=== PATIENT | female | born 1955 | race African-American/Black ===

== ENCOUNTER 2025-04-03 10:39 | Inpatient (IN) ==
--- NOTE | 2025-04-03 11:35 | Emergency Department Note ---
Impression & Plan Chest pain, Back pain, Elevated troponin ED Provider Note ED Provider Note NAME: LM PERALES AGE:69 SEX: Female : 1955 ARRIVES VIA: Private vehicle INFORMANT: Patient ED PROVIDER(s): Tara Leary DO CHIEF COMPLAINT: Chest pain, back pain, referred by urgent care HPI: This is a 69-year-old female who presents to the emergency department due to concern for chest pain and back pain which began yesterday. She was referred here after initially presenting to urgent care. Patient states yesterday while at rest she developed a central chest pressure with some radiation through to her back. She denies any other accompanying symptoms. She states she thought it was perhaps GI in origin so she tried drinking water, taking baking soda, and drinking apple cider vinegar. After taking all of that she did vomit once and then felt better. She states she was able to sleep overnight without any pain or discomfort initially felt well this morning. After getting up and moving again she began to have pain in her chest and now more so across her mid back area of her bra strap. She denies any coming shortness of breath, dizziness, nausea or vomiting. She states she felt some slight pain in the left arm as well. No extremity weakness or paresthesias. She denies any prior cardiac issues. No history of recurrent GERD. No recent fevers, chills, or URI symptoms. No recent change in medications or diet. No current pain at this time. PAST MEDICAL HISTORY:See Below PAST SURGICAL HISTORY:See Below FAMILY HISTORY:See Below SOCIAL HISTORY:See Below HOME MEDICATIONS:See Below ALLERGIES:See Below VITALS:See Below PHYSICAL EXAMINATION: GENERAL: alert, well appearing, well nourished, no distress, non-toxic EYE EXAM: normal conjunctiva, PERRL and EOM's grossly intact OROPHARYNX: no exudate, no erythema, lips, buccal mucosa, and tongue normal and mucous membranes are moist NECK: supple, no nuchal rigidity, no adenopathy, non-tender LUNGS: Clear to auscultation. Normal chest wall mechanics, no w/r/r HEART: no murmurs, S1 normal and S2 normal, no reproducible pain with palpation ABDOMEN: abdomen soft, non-tender, normo-active bowel sounds, no masses, no rebound or guarding. SKIN: no rashes, petechiae, orbruising UPPER EXTREMITIES: upper extremities are grossly normal. FROM, nml pulses b/l. LOWER EXTREMITIES: No pitting edema. FROM, nml pulses b/l. NEURO EXAM: Normal sensorium, cranial nerves II-XII grossly intact, normal speech, no facial droop,nogross weakness of arms, no gross weakness of legs. Gross sensation intact. No ataxia. Vital Signs: reviewed and remarkable Differential Diagnosis: acute coronary syndrome, pericarditis, pulmonary embolus, aortic dissection, pneumonia, pneumothorax, musculoskeletal pain, shingles, GERD, GI bleed, as well as others were considered MEDICAL DECISION MAKING: This 69-year-old female who presents to the emergency department after referred here from [facility] due to concern for chest and back pain. Patient afebrile and hemodynamically stable. Labs drawn and sent, IV established, EKG and CXR performed and interpreted at bedside, and patient placed on telemetry. Patient had no pain in wrist, EKG reassuring. Patient's troponin noted to be markedly elevated. Patient updated on all results and need for further outpatient evaluation. Case discussed with on-call [facility] cardiology and then with the [facility] hospitalist team for further evaluation. Heparin drip started on the patient, Nitropaste and aspirin were also added. Consultation(s): 1320: Discussed with Dr. Barton, cardiology. Recommends heparin, nitro, and admission to medicine for echo and possible intervention. 1329: Discussed with Dr. Kelly, [place] hospitalist team, for additional evaluation and mgmt. ER Treatment Provided: See below Diagnostics Interpreted By Me: -ECG: Normal sinus at 69, leftward axis, normal intervals, inverted T wave in lead III only, no other acute ischemic changes -Cardiac Monitoring: An order was placed for continuous cardiac monitoring. The monitor shows a rate of 80 with normal sinus rhythm. -Laboratory studies: As stated above and show below. -Imaging studies: X-ray Chest: A single view study of the chest was reviewed and was negative for cardiomegaly, focal infiltrate, effusion, pulmonary edema, or wide mediastinum. Triage Nursing Note Reviewed Prior/Outside Records Reviewed Critical Care: Critical care of 39 min performed to assess and manage high likelihood of life-threatening ACS, involving labs and imaging performed with assessment to evaluate chest pain diagnosis with frequent reassessment. This time includes bedside time, treatment discussions with patient/family/consultants, documentation time and excludes procedure time. 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 Beliefs That Will Affect Care: Voodoo Voodoo Beliefs: Judaism, no blood products Current Living Situation: Alone current occupational status: retired Other Information That Helps Us Care for You: No Feels Safe at Home: Yes Safety Concerns: Feels Safe At This Time Assistive Devices: Glasses Allergies Allergies Allergy/AdvReac Type Severity Reaction Status Date / Time No Known Allergies Allergy Verified 04/03/25 09:57 Home Meds Home Medications Medication Instructions Recorded Confirmed metoprolol tartrate 25 mg tablet 25 mg PO DAILY 07/18/23 04/03/25 quetiapine 50 mg tablet (Seroquel) 50 mg PO DAILY 07/18/23 04/03/25 Results & Data (ED) Vital Signs Vital Signs - 24 hr 04/03/25 10:41 04/03/25 12:23 04/03/25 12:30 Temperature 36.7 C Temperature Source Temporal Artery Scan Pulse Rate 79 66 65 Pulse Rate from SpO2 Sensor 64 Respiratory Rate 18 16 Respiratory Effort / Characteristics Non-Labored Spontaneous Respiratory Depth Normal Respiratory Pattern Regular Blood Pressure 157/80 H 135/84 Blood Pressure Mean 105 101 Blood Pressure Position Sitting Pulse Oximetry 100 97 Oxygen Delivery Method Room Air Room Air Sepsis Recent Fever Within 48 Hours No Sepsis New/Unexplained Change in Mental Status N/A Sepsis Action Taken by Nursing No Action Required Laboratory Data 04/03/25 11:13 04/03/25 11:13 Lab Results 04/03/25 Range/Units 11:13 WBC 3.43 L (4.8-10.8) K/ul RBC 5.25 (4.20-5.40) M/uL Hgb 14.0 (12.0-16.0) g/dL Hct 43.0 (37.0-47.0) % MCV 81.9 (80.0-100.0) fL MCH 26.7 (25.0-34.0) pg MCHC 32.6 (32.0-36.0) g/dL RDW Std Deviation 39.1 (36.4-46.3) fL RDW Coeff of [place] 13.2 (11.5-14.5) % Plt Count 123 L (130-400) K/uL MPV 12.2 (9.4-12.4) fL Immature Gran % (Auto) 0.3 % Neut % (Auto) 53.9 % Lymph % (Auto) 31.2 % [place] % (Auto) 12.2 % Eos % (Auto) 1.5 % Baso % (Auto) 0.9 % Neut # (Auto) 1.85 (1.40-6.50) K/uL Lymph # (Auto) 1.07 L (1.20-3.40) K/uL [place] # (Auto) 0.42 (0.11-0.59) K/uL Eos # (Auto) 0.05 (0.00-0.50) K/uL Baso # (Auto) 0.03 (0.00-0.20) K/uL Immature Gran # (Auto) 0.01 (0.01-0.20) K/uL PT 11.2 (9.0-12.0) Seconds INR 1.1 (0.9-1.1) APTT 25 (21-31) Seconds PTT Ratio 0.9 D-Dimer 200 (0-500) ug/L FEU Sodium 140 (136-145) mmol/L Potassium 3.7 (3.5-5.1) mmol/L Chloride 105 (98-107) mmol/L Carbon Dioxide 29 (21-32) mmol/L Anion Gap 6 (3-11) BUN 7 (6-23) mg/dl Creatinine 0.74 (0.6-1.2) mg/dl Est Cr Clr Drug Dosing 70.0 ml/min eGFR 86.98 BUN/Creatinine Ratio 9.5 L (10-20) Glucose 87 (70-99(Fasting)) mg/dl Calcium 9.5 (8.6-10.3) mg/dl Magnesium 2.1 (1.7-2.4) mg/dl Total Bilirubin 0.9 (0.2-1.0) mg/dl AST 41 H (13-39) U/L ALT 17 (7-52) U/L Alkaline Phosphatase 76 (34-104) U/L Troponin I High Sens 5156.4 H* (0-14) pg/ml B-Natriuretic Peptide 35 (0-100) pg/ml Total Protein 7.6 (6.0-8.3) gm/dl Albumin 4.1 (3.4-5.0) gm/dl Globulin 3.5 (2.5-4.0) gm/dl Albumin/Globulin Ratio 1.2 (0.9-2) Lipase 24 (11-82) U/L TSH 0.625 (0.300-4.500) uIu/ml Administered Medications Heparin Sodium/Dextrose (Heparin 60553 Unit/500 Ml D5w) 25,000 units in 500 mls @ 15 mls/hr IV .Q24H [facility]; Protocol Stop: 05/03/25 13:44 Last Admin: 04/03/25 13:49 Dose: 750 units/hr, 15 mls/hr Documented By: LESLIE Co-signed By: JOSLYN Discontinued Medications Aspirin (Aspirin 325 Mg Ectab) 325 mg PO NOW STA Stop: 04/03/25 13:30 Last Admin: 04/03/25 13:45 Dose: Not Given Documented By: LESLIE Aspirin (Aspirin 81 Mg Chew) 324 mg PO NOW STA Stop: 04/03/25 13:35 Last Admin: 04/03/25 13:49 Dose: 324 mg Documented By: LESLIE Heparin Sodium (Porcine) (Heparin Sod (Porcine) 1000 Unit/Ml) 1 units IV NOW ONE Stop: 04/03/25 13:36 Last Admin: 04/03/25 13:41 Dose: Not Given Documented By: LESLIE Heparin Sodium (Porcine) (Heparin Sod (Porcine) 1000 Unit/Ml) 4,000 units IV NOW ONE Stop: 04/03/25 13:46 Last Admin: 04/03/25 13:49 Dose: 4,000 units Documented By: LESLIE Co-signed By: JOSLYN Heparin Sodium/Dextrose (Heparin Iv Adult Wt-Based Low-Dose W/ Initial Bolus Protocol) 1 each IV NOW STA; Protocol Stop: 04/03/25 13:21 Last Admin: 04/03/25 13:41 Dose: Not Given Documented By: LESLIE Famotidine (Pepcid 20mg Iv Push) 20 mg in 5 mls @ 2.5 mls/min IV NOW STA Stop: 04/03/25 11:09 Last Admin: 04/03/25 11:45 Dose: 2.5 mls/min Documented By: JOSIE Acetaminophen (Ofirmev) 1,000 mg in 100 mls @ 400 mls/hr IV NOW STA Stop: 04/03/25 11:22 Last Admin: 04/03/25 11:45 Dose: Not Given Documented By: JOSIE Nitroglycerin (Nitroglycerin 2% Ointment 30gm Tube) 0.5 inch EXT NOW STA Stop: 04/03/25 13:21 Last Admin: 04/03/25 14:51 Dose: 0.5 inch Documented By: CAROLINA Imaging Data Radiologist's Impression: Chest X-Ray 04/03/25 11:09 XR chest 1V portable CLINICAL HISTORY: Chest pain radiating to back. COMPARISON STUDY: No previous studies for comparison. FINDINGS: Lung volumes are normal. Lungs are clear. There is no pneumothorax or pleural effusion. Cardiac size is normal. Mediastinal contours are normal. There is no evidence for pulmonary edema. IMPRESSION: No acute cardiopulmonary findings. ACT 112: Negative or not required by law. Electronically signed by: Ankit Almonte M.D. 04/03/2025 12:02 PM Discharge Plan Visit Data Chief Complaint: Cardiac Assessment Stated Complaint: REF BY URGENT CARE, CARDIAC ISSUES ED Provider: Tara Leary Discharge Problem: Chest pain, Back pain, Elevated troponin Patient Disposition: Admitted As Inpatient Condition: Fair Discharge Instructions Interventions: ED Discharge Assessment Last Done: 04/03/25 14:01
[2025-04-03] MEDS: ACETAMINOPHEN 1,000 MG/100 ML VIAL IV STA (11:45)
[2025-04-03] MEDS: FAMOTIDINE 20MG IV PUSH 20 MG/5 ML SYR IV STA (11:45)
[2025-04-03 11:51] LABS: Hematocrit (blood only) 43.0 % (37.0-47.0); Hemoglobin 14.0 g/dL (12.0-16.0); Immature Granulocytes # (auto) 0.01 K/uL (0.01-0.20); Immature Granulocytes % (auto) 0.3 %; Mean Corpuscular Hemoglobin 26.7 pg (25.0-34.0); Mean Corpuscular Volume 81.9 fL (80.0-100.0); Platelet Count 123 K/uL (130-400); RDW Standard Deviation 39.1 fL (36.4-46.3); Red Blood Count 5.25 M/uL (4.20-5.40); White Blood Count 3.43 K/ul (4.8-10.8)
[2025-04-03 12:02] LABS: INR 1.1 (0.9-1.1); Prothrombin Time 11.2 Seconds (9.0-12.0)
--- NOTE | 2025-04-03 12:03 | XRay Report ---
XR chest 1V portable CLINICAL HISTORY: Chest pain radiating to back. COMPARISON STUDY: No previous studies for comparison. FINDINGS: Lung volumes are normal. Lungs are clear. There is no pneumothorax or pleural effusion. Car diac size is normal. Mediastinal contours are normal. There is no evidence for pulmonary edema. IMPRESSION: No acute cardiopulmonary findings. ACT 112: Negative or not required by law. Electronically signed by: Ankit Almonte M.D. 04/03/2025 12:02 PM
[2025-04-03 12:14] LABS: Albumin Level 4.1 gm/dl (3.4-5.0); Anion Gap 6.0 (3-11); Bilirubin,Total 0.9 mg/dl (0.2-1.0); Calcium 9.5 mg/dl (8.6-10.3); Carbon Dioxide 29.0 mmol/L (21-32); Chloride 105.0 mmol/L (98-107); Magnesium 2.1 mg/dl (1.7-2.4); Potassium 3.7 mmol/L (3.5-5.1); Sodium 140.0 mmol/L (136-145)
[2025-04-03 12:20] LABS: Alanine Aminotransferase 17.0 U/L (7-52); Albumin Globulin Ratio 1.2 (0.9-2); Alkaline Phosphatase 76.0 U/L (34-104); Blood Urea Nitrogen 7.0 mg/dl (6-23); Creatinine Clr Calc Pharmacy 70.0 ml/min; Globulin 3.5 gm/dl (2.5-4.0); Glucose 87.0 mg/dl (70-99(Fasting)); Lipase 24.0 U/L (11-82); Total Protein 7.6 gm/dl (6.0-8.3)
[2025-04-03 12:26] LABS: Thyroid Stimulating Hormone 0.625 uIu/ml (0.300-4.500)
--- NOTE | 2025-04-03 13:34 | History & Physical Report ---
Date of Service April 03, 2025 Assessment & Plan (1) NSTEMI (non-ST elevated myocardial infarction): (2) Thrombocytopenia: (3) Cirrhosis: (4) Paroxysmal atrial tachycardia: Plan 69 year old female Yazidism presents to the ER with chest and back pain. Elevated troponin consistent with NSTEMI. #Suspected NSTEMI NPO after midnight, discussed with Dr Macias and planning on cardiac catheterization tomorrow as long as there is time Aspirin, deferred decision on DAPT to cardiology Metoprolol tartrate increase to 25mg PO BID Started on nitroglycerin 0.5 inch patch, will continue Patient declined atorvastatin but will consider this post cardiac catheterization IV heparin low dose with bolus HbA1C and lipid panel with AM labs Consult cardiology - planning on transfer to her usual [facility] tumbler plater tomorrow #Liver cirrhosis INR 1.1 Presumably the cause of her mildly low platelets (patient notes this is longstanding) and WBC #Paroxysmal atrial tachycardia Reason for her prior metoprolol use at night #Obstructive sleep apnea Does not use CPAP at night since machine was recalled and not given replacement. Although she has also lost 80lb since this diagnosis. Recommend restarting as outpatient. VTE Prophylaxis - Heparin IV Disposition - admit to PCU History of Present Illness Chief Complaint: Chest pain Primary Care Provider: Monica Burleson DO Beth Coy is a 69 year old female who presents to the ER with chest and back pain. She reports initial pain started after driving back from [place] yesterday around 4pm. She got out of the car and just thought is was the cold air hitting her and didn't feel right with some chest pressure. She went to her Yazidism meeting and it appeared to subside. However later her chest pain returned at rest and appeared to radiate towards her back and left elbow. She thought is was digestion and tried apple cider vinegar and thought she had some relief but it came back. She tried baking soda and plan hot water. She vomited around 10pm last night and the pain slowly subsided and she managed to sleep around 1:30am. She felt improved this morning, just a little apprehensive but nothing similar to last night. She called her doctor and rec ommended going to urgent care who recommended she came to the ER. She is currently chest pain free. She does not smoke, no diabetes, hyperlipidemia, hypertension. She has liver cirrhosis based on prior MRI imaging although no history of ascites. Allergies Allergy/AdvReac Type Severity Reaction Status Date / Time Blood Products AdvReac Uncoded 04/03/25 21:11 Home Medications Medication Instructions Recorded Confirmed Type metoprolol tartrate 25 mg tablet 25 mg PO HS 07/18/23 04/03/25 History quetiapine 50 mg tablet (Seroquel) 50 mg PO HS 07/18/23 04/03/25 History Past Med/Surg History Problem List (Updated 04/03/25 @ 17:50 by Soren Kelly MD) NSTEMI (non-ST elevated myocardial infarction) Elevated troponin (Acute) Back pain (Acute) Chest pain (Acute) Sensorineural hearing loss (SNHL) of both ears Thrombocytopenia Osteoporosis Neuropathy Cirrhosis Paroxysmal atrial tachycardia Obstructive sleep apnea Medical History History of ovarian cyst History of hepatitis C Family History Other Coronary heart disease Diabetes Hypertension Lung cancer Social History Smoking Status: Never smoker Hx Alcohol Use: No Hx Substance Use: No Preferred Language: Nepali Communication Ability: Effective 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 Beliefs That Will Affect Care: Pentecostal Pentecostal Beliefs: Pentecostalism, no blood products Current Living Situation: Alone current occupational status: retired Other Information That Helps Us Care for You: No Feels Safe at Home: Yes Safety Concerns: Feels Safe At This Time Assistive Devices: Glasses Review of Systems Review of Systems: All systems reviewed & are unremarkable except as noted in HPI & below Physical Exam Constitutional: WD/WN, vitals as above Respiratory: normal respiratory effort, lungs clear to auscultation Cardiovascular: RRR, no murmur, no edema Gastrointestinal (Abdomen): normal bowel sounds, soft, nontender, no hepatosplenomegaly Results & Data Results & Data Vital Signs (Past 12 Hours) Vital Signs Temp Pulse Resp BP Pulse Ox O2 Del Method 04/03/25 12:30 65 16 135/84 97 Room Air 04/03/25 12:23 66 04/03/25 10:41 36.7 C 79 18 157/80 H 100 Room Air Laboratory Results Abnormal lab results 04/03/25 Range/Units 11:13 WBC 3.43 L (4.8-10.8) K/ul Plt Count 123 L (130-400) K/uL Lymph # (Auto) 1.07 L (1.20-3.40) K/uL BUN/Creatinine Ratio 9.5 L (10-20) AST 41 H (13-39) U/L Troponin I High Sens 5156.4 H* (0-14) pg/ml Diagnostic Findings XR chest 1V portable CLINICAL HISTORY: Chest pain radiating to back. COMPARISON STUDY: No previous studies for comparison. FINDINGS: Lung volumes are normal. Lungs are clear. There is no pneumothorax or pleural effusion. Cardiac size is normal. Mediastinal contours are normal. There is no evidence for pulmonary edema. IMPRESSION: No acute cardiopulmonary findings. Medications Administered ER Medications Given: Famotidine 20mg IV Acetaminophen 1000mg IV Heparin low dose IV with bolus ECG Rate (beats per minute): 69 Rhythm: normal sinus Findings: no acute ischemic change Comparison ECG Date: no prior available Code Status & VTE Plan Code Status Full VTE Prophylaxis Plan VTE Prophylaxis will be ordered: Yes PG Care Time/CCT Total # of Minutes Spent Total Time Spent with Patient: Total time spent is greater than 50% in coordination of care (as documented) at patient's floor/unit and/or counseling patient: Coding Level of Care Code 80756 INT INP/OBS CARE 3/75MIN Diagnoses NSTEMI (non-ST elevated myocardial infarction) I21.4 Thrombocytopenia D69.6 Cirrhosis K74.60 Paroxysmal atrial tachycardia I47.19
[2025-04-03] MEDS: HEPARIN SOD (PORCINE) 1000 UNIT/ML IV ONE ×2 (13:41→13:49)
[2025-04-03] MEDS: Heparin IV Adult Wt-Based Low-Dose w/ INITIAL Bolus Protocol IV STA (13:41)
[2025-04-03] MEDS: ASPIRIN 325 MG ECTAB PO STA (13:45)
[2025-04-03] MEDS: HEPARIN 25000 UNIT/500 ML D5W 25,000 UNITS/500 ML BAG IV SCH (13:49)
[2025-04-03] MEDS: ASPIRIN 81 MG CHEW PO STA (13:49)
[2025-04-03 13:55] LABS: Partial Thromboplastin Time 25 Seconds (21-31)
[2025-04-03] MEDS ORDERED: NITROGLYCERIN SL 0.4 MG/TAB TAB SL PRN (14:30)
[2025-04-03] MEDS: NITROGLYCERIN 2% OINTMENT 30GM TUBE EXT STA (14:51)
--- NOTE | 2025-04-03 15:39 | XCELERA ---
[id number] \\[email or web address]\[id number]___[id number]
--- NOTE | 2025-04-03 16:22 | Cardiology Consultation ---
Date of Consultation April 03, 2025 Assessment & Plan (1) Elevated troponin: (2) Chest pain: (3) Paroxysmal atrial tachycardia: Plan 1. Elevated troponin: Her troponin is markedly elevated, her symptoms are compatible with coronary artery disease and although her electrocardiogram does not show acute findings it does show a suggestion of age-indeterminate inferior and anterior myocardial infarction's. I think we need coronary angiography and I discussed that with her and she is agreeable. Will tentatively plan on that tomorrow. I discussed the possibility of intervention with her but would no until we do the catheterization. 2. Chest/arm discomfort: Although not classic for precordial chest discomfort her symptoms are quite classic for myocardial ischemia in general and that and the elevated troponin may coronary artery disease a diagnosis of exclusion. I am concerned that some of the prior left arm discomfort she had may actually have been anginal but we may not know that until after we treat her coronary artery disease. 3. PAT: Will keep her on the monitor here, but that is probably unrelated to this presentation. 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 She presented to urgent care on April 03, 2025 with central chest pressure with radiation to her back starting April 02, 2025, she initially thought it was GI in origin and tried some home remedies for that. She may have had some relief of discomfort and she did get some sleep but this morning she did not feel well and she went into urgent care and was referred to the emergency room here. Here she was noted to have a markedly elevated troponin measurement as well as an electrocardiogram which showed evidence of prior myocardial infarction although no acute infarction. Shortly after presenting to the emergency room her discomfort resolved. Her chest x-ray was unremarkable, her high-sensitivity troponin on presentation was 5156, a repeat done 4 hours later was 5993. Her initial electrocardiogram showed sinus rhythm with a probable inferior myocardial infarction and probable anterior myocardial infarction, both age-indeterminate. She reports having intermittent palpitations which have been diagnosed as atrial tachycardia in the past, those have not been present recently related to this presentation. At the time of my evaluation she was resting comfortably in bed and had no significant symptoms. She has not had this discomfort in the past although she has had a little bit of left arm discomfort which she thought might be shoulder trouble, but may actually have been anginal. Allergies Allergy/AdvReac Type Severity Reaction Status Date / Time No Known Allergies Allergy Verified 04/03/25 09:57 Home Medications Medication Instructions Recorded Confirmed Type metoprolol tartrate 25 mg tablet 25 mg PO DAILY 07/18/23 04/03/25 History quetiapine 50 mg tablet (Seroquel) 50 mg PO DAILY 07/18/23 04/03/25 History Patient History Medical History History of ovarian cyst History of hepatitis C Family History Other Coronary heart disease Diabetes Hypertension Lung cancer Social History Smoking Status: Never smoker Hx Alcohol Use: No Hx Substance Use: No Preferred Language: Thai Communication Ability: Effective Box Builder Required: No Beliefs That Will Affect Care: Hindu Hindu Beliefs: Scientologist, no blood products Current Living Situation: Alone current occupational status: retired Other Information That Helps Us Care for You: No Feels Safe at Home: Yes Safety Concerns: Feels Safe At This Time Assistive Devices: Glasses Review of Systems Review of Systems: All systems reviewed & are unremarkable except as noted in HPI & below Physical Exam Physical Exam: Constitutional: Alert, cooperative and in no distress. HEENT: Unremarkable Neck: No jugular venous distention, carotid pulses are normal and equal bilaterally without bruits. Pulmonary: Clear to auscultation bilaterally. Cardiac: Regular rhythm with no murmur, gallop or rub. Abdomen: Soft, nontender with normal bowel sounds. Extremities: No edema. Neurologic: No focal findings. Gait is steady. Skin: No rash, ecchymoses or petechiae. Results & Data Vital Signs (Past 12 Hours) Vital Signs Temp Pulse Pulse Resp BP BP Pulse Ox 04/03/25 15:52 66 18 125/80 97 04/03/25 15:38 75 04/03/25 15:10 04/03/25 14:30 36.5 C 79 16 151/86 H 100 04/03/25 12:30 65 16 135/84 97 04/03/25 12:23 66 04/03/25 10:41 36.7 C 79 18 157/80 H 100 O2 Del Method 04/03/25 15:52 Room Air 04/03/25 15:38 04/03/25 15:10 Room Air 04/03/25 14:30 Room Air 04/03/25 12:30 Room Air 04/03/25 12:23 04/03/25 10:41 Room Air Laboratory Results Cardiac Enzymes 04/03/25 04/03/25 Range/Units 11:13 15:02 AST 41 H (13-39) U/L Troponin I High Sens 5156.4 H* 5992.6 H* (0-14) pg/ml B-Natriuretic Peptide 35 (0-100) pg/ml Coagulation 04/03/25 Range/Units 11:13 PT 11.2 (9.0-12.0) Seconds APTT 25 (21-31) Seconds B-Natriuretic Peptide 35 (0-100) pg/ml CBC 04/03/25 Range/Units 11:13 WBC 3.43 L (4.8-10.8) K/ul RBC 5.25 (4.20-5.40) M/uL Hgb 14.0 (12.0-16.0) g/dL Hct 43.0 (37.0-47.0) % Plt Count 123 L (130-400) K/uL Neut # (Auto) 1.85 (1.40-6.50) K/uL Lymph # (Auto) 1.07 L (1.20-3.40) K/uL [place] # (Auto) 0.42 (0.11-0.59) K/uL Eos # (Auto) 0.05 (0.00-0.50) K/uL Baso # (Auto) 0.03 (0.00-0.20) K/uL Comprehensive Metabolic Panel 04/03/25 Range/Units 11:13 Sodium 140 (136-145) mmol/L Potassium 3.7 (3.5-5.1) mmol/L Chloride 105 (98-107) mmol/L Carbon Dioxide 29 (21-32) mmol/L BUN 7 (6-23) mg/dl Creatinine 0.74 (0.6-1.2) mg/dl Glucose 87 (70-99(Fasting)) mg/dl Calcium 9.5 (8.6-10.3) mg/dl AST 41 H (13-39) U/L ALT 17 (7-52) U/L Alkaline Phosphatase 76 (34-104) U/L Total Protein 7.6 (6.0-8.3) gm/dl Albumin 4.1 (3.4-5.0) gm/dl Intake and Output 04/03/25 04/03/25 04/03/25 06:59 14:59 22:59 Other: Weight 74.7 kg 74.5 kg Weight Measurement Method Chair Scale Built in [facility] Patient Weight 04/04/25 06:59 Weight 74.5 kg PG Care Time/CCT Total # of Minutes Spent Total Time Spent with Patient: Total time spent is greater than 50% in coordination of care (as documented) at patient's floor/unit and/or counseling patient: Coding Level of Care Code 28602 INT INP/OBS CARE 3/75MIN Diagnoses Elevated troponin R79.89 Chest pain R07.9 Paroxysmal atrial tachycardia I47.19
[2025-04-03] MEDS: NITROGLYCERIN 2% OINTMENT 30GM TUBE EXT SCH (16:39)
[2025-04-03 20:08] LABS: ANTI-Xa, UFH(UnfractionatedHep 0.72 IU/ml (0.3-0.7)
[2025-04-03] MEDS: METOPROLOL TARTRATE 25 MG TAB PO SCH (20:52)
[2025-04-03] MEDS ORDERED: ATORVASTATIN 40 MG TAB PO SCH (21:00)
[2025-04-03] MEDS: ACETAMINOPHEN 1,000 MG/100 ML VIAL IV PRN (21:28)
[2025-04-04 02:37] LABS: Hematocrit (blood only) 39.2 % (37.0-47.0); Hemoglobin 13.3 g/dL (12.0-16.0); Mean Corpuscular Hemoglobin 27.3 pg (25.0-34.0); Mean Corpuscular Volume 80.3 fL (80.0-100.0); Platelet Count 112 K/uL (130-400); RDW Standard Deviation 37.8 fL (36.4-46.3); Red Blood Count 4.88 M/uL (4.20-5.40); White Blood Count 3.82 K/ul (4.8-10.8)
[2025-04-04 02:50] LABS: Anion Gap 7.0 (3-11); Blood Urea Nitrogen 10.0 mg/dl (6-23); Calcium 9.1 mg/dl (8.6-10.3); Carbon Dioxide 25.0 mmol/L (21-32); Chloride 107.0 mmol/L (98-107); Cholesterol 150.0 mg/dl (0-200); Creatinine Clr Calc Pharmacy 70.9 ml/min; Glucose 103.0 mg/dl (70-99(Fasting)); HDL Cholesterol 51.0 mg/dl; Potassium 3.8 mmol/L (3.5-5.1); Sodium 139.0 mmol/L (136-145); Triglycerides 59.0 mg/dl (0-150)
[2025-04-04 03:00] LABS: ANTI-Xa, UFH(UnfractionatedHep 0.52 IU/ml (0.3-0.7)
[2025-04-04] MEDS: ASPIRIN 81 MG ECTAB PO SCH (08:46)
[2025-04-04 10:50] LABS: Hemoglobin A1C 4.9 % (4.5-5.6)
[2025-04-04] MEDS: LACTATED RINGER'S 1,000 ML IV SCH (10:57)
--- NOTE | 2025-04-04 11:39 | Cardiology Progress Note ---
Date of Service April 04, 2025 Assessment & Plan (1) NSTEMI (non-ST elevated myocardial infarction): (2) Chest pain: (3) Thrombocytopenia: Plan: platelet count runs around 120K (4) Paroxysmal atrial tachycardia: (5) Cirrhosis: Plan Await [facility] for further recommendations. 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 Currently she has not had any issues with bleeding-last colonoscopy was a few years ago. 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 She presented to urgent care on April 03, 2025 with central chest pressure with radiation to her back starting April 02, 2025, she initially thought it was GI in origin and tried some home remedies for that. She may have had some relief of discomfort and she did get some sleep but this morning she did not feel well and she went into urgent care and was referred to the emergency room here. Here she was noted to have a markedly elevated troponin measurement as well as an electrocardiogram which showed evidence of prior myocardial infarction although no acute infarction. Shortly after presenting to the emergency room her discomfort resolved. Her chest x-ray was unremarkable, her high-sensitivity troponin on presentation was 5156, a repeat done 4 hours later was 5993. Her initial electrocardiogram showed sinus rhythm with a probable inferior myocardial infarction and probable anterior myocardial infarction, both age-indeterminate. She reports having intermittent palpitations which have been diagnosed as atrial tachycardia in the past, those have not been present recently related to this presentation. At the time of my evaluation she was resting comfortably in bed and had no significant symptoms. She has not had this discomfort in the past although she has had a little bit of left arm discomfort which she thought might be shoulder trouble, but may actually have been anginal. She was seen yesterday by Dr. Barton and he is recommending [facility] which I agree. Her troponin peaked >5000 Review of Systems Review of Systems: All systems reviewed & are unremarkable except as noted in HPI & below Physical Exam Physical Exam: no change since yesterday Results & Data Vital Signs (Past 12 Hours) Vital Signs Temp Pulse Pulse Resp BP Pulse Ox O2 Del Method 04/04/25 11:12 36.7 C 67 19 110/74 99 Room Air 04/04/25 07:28 67 04/04/25 07:28 Room Air 04/04/25 07:25 36.5 C 68 18 114/75 99 Room Air 04/04/25 02:44 36.7 C 74 18 107/71 96 Room Air Laboratory Results Abnormal lab results 04/03/25 04/03/25 04/03/25 Range/Units 11: 15:02 18:20 WBC 3.43 L (4.8-10.8) K/ul Plt Count 123 L (130-400) K/uL Lymph # (Auto) 1.07 L (1.20-3.40) K/uL Heparin Anti-Xa, Unfract 0.72 H* (0.3-0.7) IU/ml BUN/Creatinine Ratio 9.5 L (10-20) Glucose (70-99(Fasting)) mg/dl AST 41 H (13-39) U/L Troponin I High Sens 5156.4 H* 5992.6 H* 4667.3 H* D (0-14) pg/ml 04/04/25 Range/Units 02:17 WBC 3.82 L (4.8-10.8) K/ul Plt Count 112 L (130-400) K/uL Lymph # (Auto) (1.20-3.40) K/uL Heparin Anti-Xa, Unfract (0.3-0.7) IU/ml BUN/Creatinine Ratio (10-20) Glucose 103 H (70-99(Fasting)) mg/dl AST (13-39) U/L Troponin I High Sens 3370.1 H* D (0-14) pg/ml Diagnostic Findings total chol 150 LDL 87 Medications Administered Current Inpatient Medications Aspirin (Aspirin 81 Mg Ectab) 81 mg PO QAM [facility] Stop: 05/04/25 08:59 Last Admin: 04/04/25 08:46 Dose: 81 mg Atorvastatin Calcium (Atorvastatin 40 Mg Tab) 40 mg PO QPM [facility] Stop: 05/03/25 20:59 Heparin Sodium/Dextrose (Heparin 55324 Unit/500 Ml D5w) 25,000 units in 500 mls @ 14 mls/hr IV .Q24H [facility]; Protocol Stop: 05/03/25 13:44 Last Titration: 04/04/25 03:53 Dose: 700 units/hr, 14 mls/hr Acetaminophen (Ofirmev) 1,000 mg in 100 mls @ 400 mls/hr IV Q8H PRN PRN Reason: Pain or Fever Stop: 04/06/25 21:00 Last Infusion: 04/03/25 22:00 Dose: Infused Lactated Ringer's (Lr) 1,000 mls @ 80 mls/hr IV .[id number] [facility] Stop: 04/04/25 22:14 Last Admin: 04/04/25 10:57 Dose: 80 mls/hr Metoprolol Tartrate (Metoprolol Tartrate 25 Mg Tab) 25 mg PO BID [facility] Stop: 05/03/25 20:59 Last Admin: 04/04/25 08:46 Dose: 25 mg Nitroglycerin (Nitroglycerin Sl 0.4 Mg/Tab Tab) 0.4 mg SL Q5M PRN PRN Reason: Chest Pain Stop: 05/03/25 14:29 Quetiapine Fumarate (Quetiapine Fumarate 25 Mg Tablet) 50 mg PO HS [facility] Stop: 05/04/25 20:59
--- NOTE | 2025-04-04 13:40 | Pre Anesthesia Assessment ---
Date of Service April 04, 2025 Pre Sedation Assessment Vital Signs Temp Pulse Pulse Resp BP BP Pulse Ox 04/04/25 13:15 67 18 142/86 H 99 04/04/25 11:12 36.7 C 67 19 110/74 99 04/04/25 07:28 67 04/04/25 07:28 04/04/25 07:25 36.5 C 68 18 114/75 99 04/04/25 02:44 36.7 C 74 18 107/71 96 04/03/25 22:39 36.5 C 71 18 99/64 L 96 04/03/25 20:00 36.7 C 81 20 126/76 98 04/03/25 15:52 66 18 125/80 97 04/03/25 15:38 75 04/03/25 15:10 04/03/25 14:30 36.5 C 79 16 151/86 H 100 O2 Del Method 04/04/25 13:15 Room Air 04/04/25 11:12 Room Air 04/04/25 07:28 04/04/25 07:28 Room Air 04/04/25 07:25 Room Air 04/04/25 02:44 Room Air 04/03/25 22:39 Room Air 04/03/25 20:00 Room Air 04/03/25 15:52 Room Air 04/03/25 15:38 04/03/25 15:10 Room Air 04/03/25 14:30 Room Air Cardiovascular RRR, no murmur, no edema Respiratory normal respiratory effort, lungs clear to auscultation Pre-Sedation Airway Assessment Smoking Status: Never smoker Hx Sleep Apnea: Yes Short, Thick Neck: No Thyromental Distance: > or= 3.5 Finger Breadths Oral Cavity: + WNL Mallampati Class: III ASA: ASA3 NPO Status Date of Last Intake of Fluids: 04/04/25 Time of Last Intake of Fluids: 09:00 Date of Last Intake of Solid Food: 04/03/25 Time of Last Intake of Solid Foods: 17:00 Notes The planned sedation has been discussed with the patient. Informed Consent was obtained. I have identified the patient, determined the appropriateness of sedation and have assessed the patient immediately prior to the procedure. All medicine(s) and interventions are by my order.
[2025-04-04] MEDS: niCARdipine 2,000 MCG/20 ML SYR ONE (14:03)
[2025-04-04] MEDS: NITROGLYCERIN/D5W 100MCG/ML 20ML SYR ONE (14:03)
[2025-04-04] MEDS: HEPARIN (PORCINE) 1000 UNIT/ML 10 ML (CATH LAB USE ONLY) ONE (14:20)
[2025-04-04] MEDS: MIDAZOLAM HCL 1 MG/ML 2ML VIAL ONE (14:21)
[2025-04-04] MEDS: OPTIRAY 350 ONE (14:25)
--- NOTE | 2025-04-04 14:27 | Post Anesthesia Assessment ---
Date of Service April 04, 2025 Post Sedation Assessment Vital Signs Temp Pulse Pulse Resp BP BP Pulse Ox 04/04/25 13:15 67 18 142/86 H 99 04/04/25 11:12 36.7 C 67 19 110/74 99 04/04/25 07:28 67 04/04/25 07:28 04/04/25 07:25 36.5 C 68 18 114/75 99 04/04/25 02:44 36.7 C 74 18 107/71 96 04/03/25 22:39 36.5 C 71 18 99/64 L 96 04/03/25 20:00 36.7 C 81 20 126/76 98 04/03/25 15:52 66 18 125/80 97 04/03/25 15:38 75 04/03/25 15:10 04/03/25 14:30 36.5 C 79 16 151/86 H 100 O2 Del Method 04/04/25 13:15 Room Air 04/04/25 11:12 Room Air 04/04/25 07:28 04/04/25 07:28 Room Air 04/04/25 07:25 Room Air 04/04/25 02:44 Room Air 04/03/25 22:39 Room Air 04/03/25 20:00 Room Air 04/03/25 15:52 Room Air 04/03/25 15:38 04/03/25 15:10 Room Air 04/03/25 14:30 Room Air Recovery Score Activity: Moves 4 extremities Respiration: Deep Breath/Cough Circulation: +/-20% PreAnes Value Consciousness: Fully Awake Oxygen Saturation: > 92% On Room Air Discharge Sedation Level of Care: Fast Track Phase II Post Sedation Plan On clinical assessment, the patient appears to have tolerated the sedation without complications. Patient is recovering as anticipated. Patient will continue to be monitored by nursing and may be discharged when sedation discharge criteria are met per below protocol. Upon Completions of procedure up to 15 minutes continue every 5 minute vital signs and the P.A.R. score; then discharge to a Phase I or Fast Track to Phase II per the following guidelines: * Discharge Patient to appropriate Phase II area if PAR is 8 or greater or return to pre- procedure baseline. The post - procedure orders will be as directed. * If PAR score is less than 8 or not return to pre-procedure baseline then patient will follow Phase I monitoring till PAR is reached for Phase II. The Phase I may be done in procedure room or may call to secure a Phase I area. * If naloxone or flumazenil are used for reversal, hold in Phase I for continued monitoring from when last reversal dose was given for a minimum of 60 minutes or longer pending the nurse and/or physician discretion of patient condition before discharge to Phase II. Please call the Sedation Physician to re-evaluate and complete post-note for discharge to Phase II area. Do NOT discharge from procedure sedation or Phase 1 until post- sedation evaluation note is complete by procedure /sedation MD Sedation Discharge Instructions to be given to the patient at discharge to home. [facility] Procedure Codes (Charges) Indication for Procedure Indication for procedure: NSTEMI
--- NOTE | 2025-04-04 22:02 | Hospitalist Progress Note ---
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 Elevated troponin consistent with NSTEMI. #NSTEMI / ?myocarditis Aspirin Metoprolol tartrate increase to 25mg PO BID s/p cardiac catheterization - pending official report but reportedly normal coronary arteries ?myocarditis as cause of elevated troponin HbA1C 4.9 LDL 87 Appreciate cardiology consult - monitor overnight on telemetry, likely home tomorrow pending full cardiac catheterization report #Liver cirrhosis INR 1.1 Presumably the cause of her mildly low platelets (patient notes this is longstanding) and WBC #Paroxysmal atrial tachycardia Reason for her prior metoprolol use at night #Obstructive sleep apnea Does not use CPAP at night since machine was recalled and not given replacement. Although she has also lost 80lb since this diagnosis. Recommend restarting as outpatient. VTE Prophylaxis - low risk Disposition - continue on PCU Admission and Anticipated Discharge Date Admission Date: April 03, 2025 Subjective Patient seen after cardiac cath. Nursing hand over reportedly with normal coronary arteries although official report still pending. No further chest pain. Physical Exam Respiratory: normal respiratory effort; no respiratory distress Results & Data Results & Data Vital Signs (Past 12 Hours) Vital Signs Temp Pulse Pulse Resp BP BP Pulse Ox 04/04/25 19:10 36.6 C 72 18 120/77 97 04/04/25 17:42 36.7 C 88 20 111/76 99 04/04/25 16:42 36.5 C 63 16 122/76 98 04/04/25 16:20 36.5 C 69 16 134/78 97 04/04/25 16:01 36.7 C 75 16 123/80 97 04/04/25 15:54 75 04/04/25 15:30 62 18 132/88 95 04/04/25 15:15 62 18 130/78 95 04/04/25 15:00 61 18 146/80 H 95 04/04/25 14:45 67 18 126/86 95 04/04/25 14:30 67 18 136/91 95 04/04/25 13:15 67 18 142/86 H 99 04/04/25 11:12 36.7 C 67 19 110/74 99 O2 Del Method 04/04/25 19:10 Room Air 04/04/25 17:42 Room Air 04/04/25 16:42 Room Air 04/04/25 16:20 Room Air 04/04/25 16:01 Room Air 04/04/25 15:54 04/04/25 15:30 Room Air 04/04/25 15:15 Room Air 04/04/25 15:00 Room Air 04/04/25 14:45 Room Air 04/04/25 14:30 Room Air 04/04/25 13:15 Room Air 04/04/25 11:12 Room Air PG Care Time/CCT Total # of Minutes Spent Total Time Spent with Patient: Total time spent is greater than 50% in coordination of care (as documented) at patient's floor/unit and/or counseling patient: Coding Level of Care Code 35984 SUB INP/OBS CARE 2MIN Diagnoses NSTEMI (non-ST elevated myocardial infarction) I21.4 Thrombocytopenia D69.6 Cirrhosis K74.60 Paroxysmal atrial tachycardia I47.19
--- NOTE | 2025-04-05 09:19 | Electrocardiogram Report ---
Test Reason : Blood Pressure : */* mmHG Vent. Rate : 69 BPM Atrial Rate : 69 BPM P-R Int : 192 ms QRS Dur : 76 ms QT Int : 366 ms P-R-T Axes : 34 -45 10 degrees QTcB Int : 392 ms Normal sinus rhythm Left axis deviation Inferior infarct , age undetermined Anterolateral infarct , age undetermined Abnormal ECG No previous ECGs available Confirmed by Noble Macias ([id number]) on 04/05/2025 9:19:29 AM Referred By: [facility] Confirmed By: Noble Macias
--- NOTE | 2025-04-05 09:39 | Cardiology Progress Note ---
Date of Service April 05, 2025 Assessment & Plan (1) NSTEMI (non-ST elevated myocardial infarction): (2) Chest pain: (3) Thrombocytopenia: Plan: platelet count runs around 120K (4) Paroxysmal atrial tachycardia: (5) Cirrhosis: Plan Ms. Coy is chest pain free. Her troponin is trending down. There was apparently no significant disease on her cardiac catheterization. Her troponin elevation and chest pain are most likely due to myocarditis. She did not have any preceding illness. She has fibromyalgia but otherwise has no autoimmune history. I will check crp, sed rate, RF and AURORA. She will start colchicine once daily. We discussed avoiding vigorous exercise over the next few months. She does not demonstrate any reduction of EF on echo. This can be repeated outpatient to follow. She is not having any significant ectopy on the monitor. She should continue metoprolol. Her blood pressure is controlled. She is ok for discharge from a cardiac perspective. We will arrange for follow up outpatient Admission and Anticipated Discharge Date Admission Date: April 03, 2025 Subjective Ms. Coy feels well today. She has not had chest pain since Tuesday. No sob. Only a couple of PVCs on the monitor otherwise NSR. She denies any preceding illnesses to her chest discomfort. Review of Systems Review of Systems: All systems reviewed & are unremarkable except as noted in HPI & below Physical Exam Constitutional: WD/WN, vitals as above Respiratory: normal respiratory effort Cardiovascular: RRR, no murmur, no edema Skin: no rashes, warm and dry Neurologic: moves all extremities and awake Psychiatric: A+Ox3, euthymic affect Results & Data Vital Signs (Past 12 Hours) Vital Signs Temp Pulse Pulse Resp BP Pulse Ox O2 Del Method 04/05/25 07:34 36.7 C 70 18 105/71 98 Room Air 04/05/25 02:42 36.7 C 67 18 110/73 99 Room Air 04/04/25 22:57 77 04/04/25 22:43 36.7 C 79 18 108/70 98 Room Air
[2025-04-05 11:08] VITALS: PULSE 73; RESP 19; TEMP 97.3; O2SAT 97
[2025-04-05 11:59] LABS: Influenza A virus by PCR Negative (Neg); Influenza B virus by PCR Negative (Neg); SARS CoV2 RNA(COVID-19) Ceph NEGATIVE (Negative)
--- NOTE | 2025-04-05 12:37 | Discharge Summary ---
Discharge Summary Date of Service April 05, 2025 Principal Dx & Hospital Course #1 = Principal Diagnosis (1) NSTEMI (non-ST elevated myocardial infarction): (2) Thrombocytopenia: (3) Cirrhosis: (4) Paroxysmal atrial tachycardia: Plan Beth Coy is a 69 year old female admitted to [facility] from April 03 - 2024 due to chest pain. Initially labs and history were concerning for NSTEMI and she was treated as such but subsequent cardiac catheterization was normal. On review by cardiology suspected her symptoms were due to myopericarditis. Given no significant chest pain since admission and r elatively normal echocardiogram so not recommend starting colchicine at this time but prescription given for her to start if her symptoms return. She should follow up with cardiology for results of her AURORA and rheumatoid factor testing and monitor her myocarditits. Notes For Next Care Provider No routine PCP follow up required Follow up with cardiology for myocarditis Medication Changes From Visit Colchicine prescribed although advised not to chicken picker or take unless her chest pain returns Admission HPI Per Admitting Provider Beth Coy is a 69 year old female who presents to the ER with chest and back pain. She reports initial pain started after driving back from [place] yesterday around 4pm. She got out of the car and just thought is was the cold air hitting her and didn't feel right with some chest pressure. She went to her [employer] meeting and it appeared to subside. However later her chest pain returned at rest and appeared to radiate towards her back and left elbow. She thought is was digestion and tried apple cider vinegar and thought she had some relief but it came back. She tried baking soda and plan hot water. She vomited around 10pm last night and the pain slowly subsided and she managed to sleep around 1:30am. She felt improved this morning, just a little apprehensive but nothing similar to last night. She called her doctor and recommended going to urgent care who recommended she came to the ER. She is currently chest pain free. She does not smoke, no diabetes, hyperlipidemia, hypertension. She has liver cirrhosis based on prior MRI imaging although no history of ascites. Discharge Exam Constitutional WD/WN, vitals as above Respiratory normal respiratory effort, lungs clear to auscultation Cardiovascular RRR, no murmur, no edema Discharge Plan Discharge Items Patient Disposition: Home - Self-Care Reason For Visit: NSTEMI Discharge Diagnosis: Normal coronary arteries Idiopathic myopericarditis Condition on Discharge: Fair Activity: Per Instructions section Non-emergency contact: Primary Care Provider and Licensed Club Manager Call non-emergency contact if: you have any medication questions, your symptoms worsen, your pain is not controlled, you have a fever, your wound has increased drainage and your wound pain has increased Follow-up/Referrals: Sunny Contreras DO [Physician] - Monica Burleson DO [Primary Care Provider] - (No routine follow up required) Diet: Regular Addtl Attending Provider Instructions: You were admitted to [facility] from April 03 - 2024 due to chest pain. Initially concerned about a heart attack and you were treated as such but subsequent cardiac catheterization was normal. Suspect your symptoms were due to perimyocarditis. You are no longer having chest pain therefore no need to start any medications for this currently. If your chest pain reoccurs recommend starting colchicine as recommended by cardiology. Please follow up with cardiology as an outpatient for ongoing management of this. ACTIVITY RECOMMENDATIONS: Excess manipulation of the wrist should be avoided for the next 24-48 hours. * No lifting over 2 pounds (approximately a 1/2 gallon of milk) with the utilized arm for 24 hours. * No strenuous activity such as bowling or tennis for 3 days. * Keep the site of the procedure covered with a bandage for 24 hours. *You may shower the day after the procedure. Do not take a tub bath or submerge the puncture site in water for the next 3 days. *Do not operate any motorized equipment for 3 days. SPECIAL CARE INSTRUCTIONS: The site may be slightly bruised and sore following your procedure. Should any of the following occur, contact the Dr. who performed your procedure. 1. Redness/inflammation, swelling, chills, or fever, or colored drainage at procedure site within 3-7 days after your procedure. 2. Coldness, discoloration, ongoing numbness, severe pain, or swelling. Expect mild tingling of hand and tenderness at the puncture site for up to three days. If this persists beyond three days, or other symptoms develop, notify the Dr. who performed your procedure. BLEEDING: If the procedure site on your wrist begins to bleed, do not panic 1. Place 1 or 2 fingers firmly just slightly above the insertion site to stop the bleeding. You may be able to feel your pulse as you hold pressure. 2. Lift your finger after 5 minutes to see if the bleeding has stopped. 3. Once the bleeding has stopped, gently wipe the wrist area clean with a bandage. * If the bleeding from your wrist does not stop after 10 minutes, or if there is a large amount of bleeding or spurting, call 911 (do not drive yourself to the hospital). SKIN IRRITATION: * You may experience some redness and/or swelling in the area where radiation was administered. If any skin irritation occurs, please contact your family physician. FOLLOW UP VISIT: Keep any scheduled doctor appointments. Pending Studies at Discharge: No Stand-Alone Forms: My [facility], Smoking Cessation Medications and DC Order Prescriptions: New colchicine 0.6 mg tablet 0.6 mg PO DAILY Qty: 30 0RF Continued quetiapine [Seroquel] 50 mg tablet 50 mg PO HS metoprolol tartrate 25 mg tablet 25 mg PO HS Discharge Orders: Discharge Order (Routine); Ordered 04/05/25 Ordered By: Soren Olvera/Other Patient Handouts: Colchicine Oral Tablet Admission Data Admit Date/Time: 04/03/25 13:31 Attending Provider: Soren Kelly Admit Provider: Soren Kelly Primary Care Provider: Monica Burleson Other Providers: Soren Kelly; Noble Macias Hospital Stay Data Consultations 04/03/25 13:29 ED Decision to Admit Stat 04/03/25 14:30 Consult Cardiology Routine 04/04/25 14:28 Consult Cardiac Rehabilitation Routine Procedures Performed Operation Date: 04/04/25 12:30 Actual Procedures p Cath, Left with Cors and Vent - Bobby Anton MD, PhD s Cineradiography w/Routine Exam - Bobby Anton MD, PhD Diagnostic Imagining Performed 04/04/25 05:54 CL Cath Imgs for PACS use only Routine Pending Results Patient Have Any Pending Studies at Discharge: No Discharge Instructions Given to Patient (Per Discharging Provider) You were admitted to [facility] from April 03 - 14, 2025 due to chest pain. Initially concerned about a heart attack and you were treated as such but subsequent cardiac catheterization was normal. Suspect your symptoms were due to perimyocarditis. You are no longer having chest pain therefore no need to start any medications for this currently. If your chest pain reoccurs recommend starting colchicine as recommended by cardiology. Please follow up with cardiology as an outpatient for ongoing management of this. ACTIVITY RECOMMENDATIONS: Excess manipulation of the wrist should be avoided for the next 24-48 hours. * No lifting over 2 pounds (approximately a 1/2 gallon of milk) with the utilized arm for 24 hours. * No strenuous activity such as bowling or tennis for 3 days. * Keep the site of the procedure covered with a bandage for 24 hours. *You may shower the day after the procedure. Do not take a tub bath or submerge the puncture site in water for the next 3 days. *Do not operate any motorized equipment for 3 days. SPECIAL CARE INSTRUCTIONS: The site may be slightly bruised and sore following your procedure. Should any of the following occur, contact the Dr. who performed your procedure. 1. Redness/inflammation, swelling, chills, or fever, or colored drainage at procedure site within 3-7 days after your procedure. 2. Coldness, discoloration, ongoing numbness, severe pain, or swelling. Expect mild tingling of hand and tenderness at the puncture site for up to three days. If this persists beyond three days, or other symptoms develop, notify the Dr. who performed your procedure. BLEEDING: If the procedure site on your wrist begins to bleed, do not panic 1. Place 1 or 2 fingers firmly just slightly above the insertion site to stop the bleeding. You may be able to feel your pulse as you hold pressure. 2. Lift your finger after 5 minutes to see if the bleeding has stopped. 3. Once the bleeding has stopped, gently wipe the wrist area clean with a bandage. * If the bleeding from your wrist does not stop after 10 minutes, or if there is a large amount of bleeding or spurting, call 911 (do not drive yourself to the hospital). SKIN IRRITATION: * You may experience some redness and/or swelling in the area where radiation was administered. If any skin irritation occurs, please contact your family physician. FOLLOW UP VISIT: Keep any scheduled doctor appointments. Total Time Total Time Spent Total Time Spent (In Minutes): 40 Total Time Includes: Examination of the Patient, Discharge Planning, Medication Reconciliation and Communication With Other Providers Coding Level of Care Code INP/OBS EV SAME DAY LV 3,85MIN Diagnoses NSTEMI (non-ST elevated myocardial infarction) I21.4 Thrombocytopenia D69.6 Cirrhosis K74.60 Paroxysmal atrial tachycardia I47.19
[2025-04-05] MEDS: COLCHICINE 0.6 MG TAB PO SCH (12:44)
[2025-04-05 12:54] VITALS: BP 132/88
[2025-04-08 19:12] LABS: Anti Nuclear Antibody Screen NEGATIVE (NEGATIVE)
--- NOTE | 2025-04-14 11:17 | Cardiac Catheterization ---
[facility] Data: Chemical Sales Representative Cardiac Status Clinical evaluation leading to the procedure CAD Presenation: Non STEMI Anginal Classification: CCS IV Heart Failure: No Cardiogenic Shock within 24 Hours: No Cardiac Arrest within 24 Hours: No Imaging Studies Past 6 Months: Yes Stress Studies Past 6 Months: No Coronary Anatomy Dominant: Right Left Main (% Stenosis): Normal LAD (% Stenosis): Normal D1 (% Stenosis): Normal Circumflex (% Stenosis): Normal OM1 (% Stenosis): Normal L PL1 (% Stenosis): Normal RCA (% Stenosis): Normal R PDA (% Stenosis): Normal R PL1 (% Stenosis): Normal Ramus (% Stenosis): Normal Left Ventricular Angiography EF (%): 65 Mitral Regurgitation: None Diagnostic Physicians Name: Bobby Anton MD, PhD Closure Device Percutaneous Entry Location: Radial Closure Device: Radial Band Recommendations: Medical Therapy and/or Counseling Cardiac Cath Procedure Full Procedure Date April 04, 2025 Pre-Procedure Diagnosis Pre-Procedure Diagnosis: Non STEMI AUC Score AUC Score: 07 Post-Procedure Diagnosis Post-Procedure Diagnosis: Normal Coronary Arteries, Normal LV Systolic Function and Normal Intracardiac Pressures Procedure(s) Performed Procedure(s) Performed: Coronary Angiography, Left Heart Cath, LV Angiography and Ultrasound Guided Vascular Access Tool And Die Engineer Bobby Anton MD, PhD Estimated Blood Loss Estimated Blood Loss: 3 cc Medication(s) Medication(s): Fentanyl, Heparin, Lidocaine 1%, Nicardipine and Versed Summary of Findings Brief description: Patient was brought to the cardiac catheterization suite where she was shaved and prepped in a sterile fashion. Sedated using IV Versed and fentanyl. Soft tissues of the right wrist were anesthetized using 2 mL of 1% Xylocaine. Using the ultrasound for guidance (image saved), right radial artery was accessed and a 6 [place] radial artery glide sheath was placed. Patient was provided anticoagulation with IV heparin and antispasmodics including nicardipine and nitroglycerin. All catheters were advanced and exchanged over a 0.035 J-tip wire. Left coronary angiography in orthogonal views with a 5 [place] 4 diagnostic catheter. Right coronary angiography in orthogonal views with a 5 [place] 4 diagnostic catheter. Left heart cath and left ventriculogram were performed with a 5 [place]ian angled pigtail catheter. All diagnostic catheters were removed. Radial artery sheath was removed. Hemostasis was obtained using a TR band. Patient remained hemodynamically stable and asymptomatic. She was returned to the recovery area. This ended the case. Coronary angiography findings: FLC-dkexj-vzutoik vessel trifurcating into LAD, ramus, and circumflex. No disease. LAD-large and transapical. Gives a large branching D1 and has no disease. The ramus is medium caliber and there is a septal arising off the ramus. No angiographically evident disease. LCx-large caliber nondominant. Provides an OM1 and a posterolateral branch. No angiographically evident disease. RCA-medium and dominant. Bifurcates into the PDA and posterolateral branches. There is no angiographically evident disease. Note: All epicardial coronaries become tortuous as a progressed distally. LVG-EF 65%, no mitral regurgitation, normal wall motion (anterior, inferior, and apical-DELGADO 30 degrees) Summary: 1. Normal epicardial coronary arteries without disease. 2. Normal LV systolic function. 3. No significant aortic valve gradient. Normal intracardiac pressures. Hemodynamics Rest Ao:: 109/51 mmHg Final Ao: 109/65 mmHg LV: 127/-3 mmHg, LVEDP 4 mmHg (patient dehydrated with n.p.o.) Recommendations Recommendations: Medical Therapy and/or Counseling Radiation Exposure (mGy) 429 mGy, fluoroscopy time 2.8 minutes Contrast (mls) 65 cc Anesthesia 1 mg Versed, 25 mcg fentanyl IV. Start time 1403, end time 1425 Procedural Complication(s) None Disposition Chemical Sales Representative Holding/Recovery I attest to the content of the Intraoperative Record and any orders documented therein. Any exceptions are noted below. [facility] Card Cath Procedure Codes Cardiac Catheterization Procedure 1: Cardiovascular Cath Procedures: 75295 Coronaries and LHC (+/-LV) Therapeutic Services & Ancillary Procedure 1: Cardiovascular Tx and Anc Procedures: 78633 Ultrasonic Guidance Vascular Access Moderate Sedation Procedure 1: Sedation/Anesthesia: 71827 Mod Sedation by the same physician;Init15 Min Child Age 5 & Up (Initial 15 minutes, start time 1403) Procedure 2: Sedation/Anesthesia: 03234 Mod Sedation by the same physician; Ea [id number] Minutes (Additional 7 minutes. End time 1425) PG Care Time/CCT Total # of Minutes Spent Total Time Spent with Patient: Total time spent is greater than 50% in coordination of care (as documented) at patient's floor/unit and/or counseling patient:
== END 2025-04-05 13:22 | disposition home or self-care (01) | DRG 287 ==
LOC: ED 10:39 → 2S 13:31